=== PATIENT | male | born 1955 | race Caucasian/White ===

== ENCOUNTER 2018-08-14 10:36 | Inpatient (IN) | payer MEDICARE, MEDICAID ==
[~2018-08-14] VITALS: Ht 190.5 cm; Wt 65.3 kg
[~2018-08-14 10:36] MED LIST: DIVA500T52 PO; QUET400T3 PO
[2018-08-14] MEDS ORDERED: QUEtiapine FUMARATE 100 MG TABLET PO ONE (11:30)
[2018-08-14 11:42] LABS: BASOPHILS % (AUTO) 0.2 % (0.0-2.0); EOSINOPHILS % (AUTO) 0.6 % (1.0-6.0); HEMATOCRIT 38.7 % (41-53); HEMOGLOBIN 13.3 g/dL (13.5-17.5); LYMPHOCYTES # (AUTO) 1.5 K/uL (1.0-4.8); LYMPHOCYTES % (AUTO) 22.8 % (22.0-44.0); MEAN CORPUSCULAR HEMOGLOBIN 30.6 pg (26.0-34.0); MEAN CORPUSCULAR HGB CONC 34.3 G/dL (31.0-37.0); MEAN CORPUSCULAR VOLUME 89 fL (80-100); MONOCYTES # (AUTO) 0.4 K/uL (0.1-1.0); MONOCYTES % (AUTO) 5.8 % (2.0-9.0); NEUTROPHILS # (AUTO) 4.7 K/uL (1.8-7.7); NEUTROPHILS % (AUTO) 70.6 % (40.0-70.0); PLATELET COUNT (AUTO) 412 K/uL (150-450); RED BLOOD CELL COUNT(AUTO) 4.33 MIL/uL (4.50-5.90); RED CELL DISTRIBUTION WIDTH 15.2 % (11.5-14.5)
[2018-08-14 11:53] LABS: ANION GAP 4 mmol/L (8-16); CALCIUM, TOTAL 9.1 mg/dL (8.8-10.5); CARBON DIOXIDE 32 mmol/L (22-29); CHLORIDE 99 mmol/L (98-107); CREATININE 0.93 mg/dL (0.60-1.30); GLOMERULAR FILTR. RATE CALC > 60 mL/min (>60); GLUCOSE,RANDOM 90 mg/dL (70-110); POTASSIUM 4.5 mmol/L (3.5-5.1); SODIUM SERUM 135 mmol/L (136-145); UREA NITROGEN, BLOOD 9 mg/dL (7-18)
[2018-08-14 11:58] LABS: ALANINE AMINOTRANSFERASE 17 U/L (12-78); ALBUMIN 3.5 g/dL (3.4-5.0); ALKALINE PHOSPHATASE 102 U/L (46-116); ASPARTATE AMINOTRANSFERASE 18 U/L (15-37); BILIRUBIN,TOTAL 0.2 mg/dL (0.1-1.0); TOTAL PROTEIN, SERUM 7.3 g/dL (6.4-8.2)
[2018-08-14 11:59] LABS: VALPROIC ACID < 3 mcg/mL (50-100)
[2018-08-14] MEDS ORDERED: ZOLPIDEM TARTRATE 10 MG TABLET PO PRN (12:15)
[2018-08-14] MEDS ORDERED: LORazepam 2 MG TABLET PO PRN (12:15)
[2018-08-14] MEDS ORDERED: HALOPERIDOL 5 MG TABLET PO PRN (12:15)
[2018-08-14 13:18] LABS: CHOL/HDL RATIO 2.6 (4.2-7.3); CHOLESTEROL 126 mg/dL (131-200); HDL CHOLESTEROL 48 mg/dL (40-60); LDL CHOL (CALC.) 61 mg/dL (0-130); TRIGLYCERIDES 84 mg/dL (15-150)
[2018-08-14 13:30] LABS: AMPHET/METH SCREEN,URINE NEGATIVE (NEGATIVE); BARBITURATE SCREEN, URINE NEGATIVE (NEGATIVE); BENZODIAZEPINES SCREEN,URINE NEGATIVE (NEGATIVE); CANNABINOID SCREEN,URINE NEGATIVE (NEGATIVE); COCAINE SCREEN,URINE NEGATIVE (NEGATIVE); METHADONE SCREEN, URINE NEGATIVE (NEGATIVE); OPIATE SCREEN,URINE NEGATIVE (NEGATIVE)
[2018-08-14 13:31] LABS: PHENCYCLIDINE SCREEN,URINE NEGATIVE (NEGATIVE)
[2018-08-14 16:00] VITALS: BP 101/68
[2018-08-14] MEDS ORDERED: MAGNESIUM HYDROXIDE SUSPENSION 30 ML UDCUP PO PRN (22:15)
[2018-08-14] MEDS ORDERED: LOPERAMIDE HCL 2 MG CAPSULE PO PRN (22:15)
[2018-08-14] MEDS ORDERED: BACITRACIN 28.4 GM OINTMENT TP PRN (22:15)
[2018-08-14] MEDS ORDERED: PETROLATUM,WHITE 71 GM JELLY TP PRN (22:15)
[2018-08-14] MEDS ORDERED: ACETAMINOPHEN 325 MG TABLET PO PRN (22:15)
[2018-08-14] MEDS ORDERED: CloNIDine HCL 0.1 MG TABLET PO PRN (22:15)
[2018-08-14] MEDS ORDERED: BENZOCAINE/MENTHOL LOZENGE MM PRN (22:15)
[2018-08-14] MEDS ORDERED: ONDANSETRON HCL 4 MG TABLET PO PRN (22:15)
[2018-08-14] MEDS ORDERED: IBUPROFEN 600 MG TABLET PO PRN (22:15)
[2018-08-14] MEDS ORDERED: MAG HYDROX/AL HYDROX/SIMETH ES 30 ML SUSPENSION UDCUP PO PRN (22:15)
[2018-08-15 03:33] VITALS: BP 114/68
[2018-08-15 08:24] VITALS: BP 149/76
[2018-08-15] MEDS: SODIUM CHLORIDE 1 GM TABLET PO SCH ×2 (08:33→16:34)
[2018-08-15] MEDS: OMEPRAZOLE 20 MG CAPSULE PO SCH (08:33)
[2018-08-15] MEDS: DOCUSATE SODIUM 100 MG CAPSULE PO SCH (08:33)
[2018-08-15] MEDS: ALBUTEROL SULFATE HFA 90 MCG/PUFF 8 GM INHALER IH PRN (08:37)
[2018-08-15 08:40] LABS: % IRON SATURATION 12.9 % (30-44)
[2018-08-15 10:31] VITALS: BP 103/62
[2018-08-15 16:00] VITALS: BP 107/70
[2018-08-15] MEDS: DIVALPROEX SODIUM 500 MG ER TABLET PO SCH (20:43)
[2018-08-15] MEDS: QUEtiapine FUMARATE 200 MG ER TABLET PO SCH (20:43)
[2018-08-16 05:04] VITALS: BP 112/74
[2018-08-16] MEDS: MULTIVITAMINS WITH IRON TABLET PO SCH (07:01)
[2018-08-16 08:12] VITALS: BP 121/76
[2018-08-16] MEDS: OMEPRAZOLE 20 MG CAPSULE PO SCH (08:15)
[2018-08-16] MEDS: DOCUSATE SODIUM 100 MG CAPSULE PO SCH (08:15)
[2018-08-16 08:21] LABS: ANION GAP 3 mmol/L (8-16); CALCIUM, TOTAL 8.8 mg/dL (8.8-10.5); CARBON DIOXIDE 32 mmol/L (22-29); CHLORIDE 104 mmol/L (98-107); CREATININE 0.77 mg/dL (0.60-1.30); GLOMERULAR FILTR. RATE CALC > 60 mL/min (>60); GLUCOSE,RANDOM 80 mg/dL (70-110); POTASSIUM 4.2 mmol/L (3.5-5.1); SODIUM SERUM 139 mmol/L (136-145); UREA NITROGEN, BLOOD 12 mg/dL (7-18)
[2018-08-16 16:05] VITALS: BP 113/67
[2018-08-16] MEDS: QUEtiapine FUMARATE 200 MG ER TABLET PO SCH (20:08)
[2018-08-16] MEDS: DIVALPROEX SODIUM 500 MG ER TABLET PO SCH (20:08)
[2018-08-17 00:24] VITALS: BP 110/68
[2018-08-17] MEDS: MULTIVITAMINS WITH IRON TABLET PO SCH (07:17)
[2018-08-17 08:12] VITALS: BP 101/61
[2018-08-17] MEDS: DOCUSATE SODIUM 100 MG CAPSULE PO SCH (08:22)
[2018-08-17] MEDS: OMEPRAZOLE 20 MG CAPSULE PO SCH (08:22)
[2018-08-17 16:06] VITALS: BP 104/81
[2018-08-17] MEDS: QUEtiapine FUMARATE 200 MG ER TABLET PO SCH (20:11)
[2018-08-17] MEDS: DIVALPROEX SODIUM 500 MG ER TABLET PO SCH (20:11)
[2018-08-18 04:13] VITALS: BP 110/72
[2018-08-18] MEDS: MULTIVITAMINS WITH IRON TABLET PO SCH (06:55)
[2018-08-18 08:04] VITALS: BP 110/77
[2018-08-18] MEDS: OMEPRAZOLE 20 MG CAPSULE PO SCH (08:44)
[2018-08-18] MEDS: DOCUSATE SODIUM 100 MG CAPSULE PO SCH (08:44)
[2018-08-18] MEDS: ALBUTEROL SULFATE HFA 90 MCG/PUFF 8 GM INHALER IH PRN (12:25)
[2018-08-18 16:00] VITALS: BP 107/65
[2018-08-18] MEDS: DIVALPROEX SODIUM 500 MG ER TABLET PO SCH (20:34)
[2018-08-18] MEDS: QUEtiapine FUMARATE 200 MG ER TABLET PO SCH (20:34)
[2018-08-19 05:41] VITALS: BP 110/68
[2018-08-19] MEDS: MULTIVITAMINS WITH IRON TABLET PO SCH (06:46)
[2018-08-19 08:23] VITALS: BP 114/69
[2018-08-19] MEDS: DOCUSATE SODIUM 100 MG CAPSULE PO SCH (08:32)
[2018-08-19] MEDS: OMEPRAZOLE 20 MG CAPSULE PO SCH (08:32)
[2018-08-19] MEDS: ALBUTEROL SULFATE HFA 90 MCG/PUFF 8 GM INHALER IH PRN ×2 (10:59→17:15)
[2018-08-19 16:14] VITALS: BP 103/74
[2018-08-19] MEDS: QUEtiapine FUMARATE 200 MG ER TABLET PO SCH (20:30)
[2018-08-19] MEDS: DIVALPROEX SODIUM 500 MG ER TABLET PO SCH (20:31)
[2018-08-20 04:59] VITALS: BP 110/70
[2018-08-20] MEDS: MULTIVITAMINS WITH IRON TABLET PO SCH (06:44)
[2018-08-20] MEDS: DOCUSATE SODIUM 100 MG CAPSULE PO SCH (08:13)
[2018-08-20] MEDS: OMEPRAZOLE 20 MG CAPSULE PO SCH (08:13)
[2018-08-20 08:14] VITALS: BP 107/69
[2018-08-20] MEDS: ALBUTEROL SULFATE HFA 90 MCG/PUFF 8 GM INHALER IH PRN (09:33)
[2018-08-20 16:03] VITALS: BP 100/61
[2018-08-20] MEDS: QUEtiapine FUMARATE 200 MG ER TABLET PO SCH (20:29)
[2018-08-20] MEDS: DIVALPROEX SODIUM 500 MG ER TABLET PO SCH (20:29)
[2018-08-21 01:26] VITALS: BP 110/68
[2018-08-21] MEDS: MULTIVITAMINS WITH IRON TABLET PO SCH (06:33)
[2018-08-21 08:16] VITALS: BP 109/64
[2018-08-21] MEDS: DOCUSATE SODIUM 100 MG CAPSULE PO SCH (08:33)
[2018-08-21] MEDS: OMEPRAZOLE 20 MG CAPSULE PO SCH (08:33)
[2018-08-21] MEDS: ALBUTEROL SULFATE HFA 90 MCG/PUFF 8 GM INHALER IH PRN ×2 (13:01→19:51)
[2018-08-21 16:06] VITALS: BP_SYST 109; BP_SYST 123; BP_DIAS 56; BP_DIAS 67
[2018-08-21] MEDS: QUEtiapine FUMARATE 200 MG ER TABLET PO SCH (20:32)
[2018-08-21] MEDS: DIVALPROEX SODIUM 500 MG ER TABLET PO SCH (20:32)
[2018-08-22 05:15] VITALS: BP 100/68
[2018-08-22] MEDS: ALBUTEROL SULFATE HFA 90 MCG/PUFF 8 GM INHALER IH PRN ×2 (05:54→18:01)
[2018-08-22] MEDS: MULTIVITAMINS WITH IRON TABLET PO SCH (06:30)
[2018-08-22 08:11] VITALS: BP 110/63
[2018-08-22] MEDS: OMEPRAZOLE 20 MG CAPSULE PO SCH (08:25)
[2018-08-22] MEDS: DOCUSATE SODIUM 100 MG CAPSULE PO SCH (08:25)
[2018-08-22] MEDS ORDERED: FluPHENAZine DECANOATE 25 MG/ML IM SCH (13:30)
[2018-08-22 16:08] VITALS: BP 101/74
[2018-08-22] MEDS: QUEtiapine FUMARATE 200 MG ER TABLET PO SCH (20:38)
[2018-08-22] MEDS: DIVALPROEX SODIUM 500 MG ER TABLET PO SCH (20:38)
[2018-08-23 00:29] VITALS: BP 85/59
[2018-08-23] MEDS: ALBUTEROL SULFATE HFA 90 MCG/PUFF 8 GM INHALER IH PRN ×2 (06:27→13:28)
[2018-08-23] MEDS: MULTIVITAMINS WITH IRON TABLET PO SCH (06:45)
[2018-08-23 08:38] VITALS: BP 103/66
[2018-08-23] MEDS: DOCUSATE SODIUM 100 MG CAPSULE PO SCH (08:43)
[2018-08-23] MEDS: OMEPRAZOLE 20 MG CAPSULE PO SCH (08:43)
[2018-08-23 16:07] VITALS: BP 108/68
[2018-08-23] MEDS: QUEtiapine FUMARATE 200 MG ER TABLET PO SCH (20:22)
[2018-08-23] MEDS: DIVALPROEX SODIUM 500 MG ER TABLET PO SCH (20:23)
[2018-08-24 01:11] VITALS: BP 112/61
[2018-08-24] MEDS: MULTIVITAMINS WITH IRON TABLET PO SCH (06:35)
[2018-08-24 08:09] VITALS: BP 106/68
[2018-08-24] MEDS: DOCUSATE SODIUM 100 MG CAPSULE PO SCH (08:34)
[2018-08-24] MEDS: OMEPRAZOLE 20 MG CAPSULE PO SCH (08:34)
[2018-08-24] MEDS: ALBUTEROL SULFATE HFA 90 MCG/PUFF 8 GM INHALER IH PRN ×2 (09:52→16:21)
[2018-08-24 16:13] VITALS: BP 103/62
[2018-08-24] MEDS: DIVALPROEX SODIUM 500 MG ER TABLET PO SCH (20:13)
[2018-08-24] MEDS: QUEtiapine FUMARATE 200 MG ER TABLET PO SCH (20:13)
[2018-08-25 01:21] VITALS: BP 102/67
[2018-08-25] MEDS: MULTIVITAMINS WITH IRON TABLET PO SCH (06:06)
[2018-08-25] MEDS: ALBUTEROL SULFATE HFA 90 MCG/PUFF 8 GM INHALER IH PRN (06:10)
[2018-08-25 08:15] VITALS: BP 108/64
[2018-08-25] MEDS: DOCUSATE SODIUM 100 MG CAPSULE PO SCH (08:35)
[2018-08-25] MEDS: OMEPRAZOLE 20 MG CAPSULE PO SCH (08:35)
[2018-08-25 16:12] VITALS: BP 104/62
[2018-08-25] MEDS: QUEtiapine FUMARATE 200 MG ER TABLET PO SCH ×2 (20:07→20:18)
[2018-08-25] MEDS: DIVALPROEX SODIUM 500 MG ER TABLET PO SCH ×2 (20:07→20:18)
[2018-08-26 04:42] VITALS: BP 110/72
[2018-08-26] MEDS: MULTIVITAMINS WITH IRON TABLET PO SCH (06:58)
[2018-08-26 08:23] VITALS: BP 105/61
[2018-08-26] MEDS: OMEPRAZOLE 20 MG CAPSULE PO SCH (08:47)
[2018-08-26] MEDS: DOCUSATE SODIUM 100 MG CAPSULE PO SCH (08:47)
[2018-08-26 16:06] VITALS: BP 125/65
[2018-08-26] MEDS: DIVALPROEX SODIUM 500 MG ER TABLET PO SCH (20:21)
[2018-08-26] MEDS: QUEtiapine FUMARATE 200 MG ER TABLET PO SCH (20:21)
[2018-08-27 00:07] VITALS: BP 90/60
[2018-08-27] MEDS: MULTIVITAMINS WITH IRON TABLET PO SCH (06:31)
[2018-08-27 08:38] VITALS: BP 105/71
[2018-08-27] MEDS: DOCUSATE SODIUM 100 MG CAPSULE PO SCH (08:46)
[2018-08-27] MEDS: OMEPRAZOLE 20 MG CAPSULE PO SCH (08:46)
[2018-08-27] MEDS: ALBUTEROL SULFATE HFA 90 MCG/PUFF 8 GM INHALER IH PRN (10:14)
[2018-08-27 16:10] VITALS: BP 102/62
[2018-08-27] MEDS: DIVALPROEX SODIUM 500 MG ER TABLET PO SCH (20:18)
[2018-08-27] MEDS: QUEtiapine FUMARATE 200 MG ER TABLET PO SCH (20:18)
[2018-08-28 05:54] VITALS: BP 102/64
[2018-08-28] MEDS: MULTIVITAMINS WITH IRON TABLET PO SCH (06:36)
[2018-08-28] MEDS: DOCUSATE SODIUM 100 MG CAPSULE PO SCH (08:15)
[2018-08-28] MEDS: OMEPRAZOLE 20 MG CAPSULE PO SCH (08:15)
[2018-08-28 08:26] VITALS: BP 109/64
[2018-08-28] MEDS: ALBUTEROL SULFATE HFA 90 MCG/PUFF 8 GM INHALER IH PRN (10:30)
[2018-08-28] MEDS ORDERED: OMEP20 PO (12:07)
[2018-08-28] MEDS ORDERED: DIVA500T52 PO (12:07)
[2018-09-05] MEDS ORDERED: FluPHENAZine DECANOATE 25 MG/ML IM SCH (09:00)
== END 2018-08-28 13:10 | disposition home or self-care (01) | DRG 885 ==
LOC: EMS 10:37 → B2X 12:52
PROVIDERS: ADMIT Psychiatry & Neurology Psychiatry; ATTEND Psychiatry & Neurology Psychiatry
DX: F20.0 Paranoid schizophrenia (principal); E87.1 Hypo-osmolality and hyponatremia; F31.9 Bipolar disorder, unspecified; F12.90 Cannabis use, unspecified, uncomplicated; F17.210 Nicotine dependence, cigarettes, uncomplicated; J45.909 Unspecified asthma, uncomplicated; D64.9 Anemia, unspecified; Z79.899 Other long term (current) drug therapy
CPT/HCPCS: 83540; 83550; G0480; J2680; J3535

== ENCOUNTER 2021-06-23 11:54 | Emergency (ER) | payer MEDICARE, MEDICAID ==
[~2021-06-23] VITALS: Ht 190.5 cm; Wt 75.0 kg
[~2021-06-23 11:54] MED LIST changes: +DIVA-80 PO; -DIVA500T52 PO; +OMEP20 PO; -QUET400T3 PO; +QUET400T5 PO
[2021-06-23 11:56] VITALS: BP 100/54
[2021-06-23] MEDS: AMOX TR/POT CLAV 875 MG/125 MG TABLET PO ONE (13:43)
[2021-06-23] MEDS: BACITRACIN 0.9 GM PACKET OINTMENT TP ONE (13:44)
== END 2021-06-23 13:52 | disposition home or self-care (01) ==
LOC: EMS 11:57
DX: L03.90 Cellulitis, unspecified (principal)
CPT/HCPCS: 99283